=== PATIENT | female | born 1995 | race African-American/Black ===

== ENCOUNTER 2016-05-21 18:38 | Emergency (ER) | payer OTHER ==
[~2016-05-21] VITALS: Ht 152.4 cm; Wt 44.9 kg
[2016-05-21 19:14] LABS: NEG OBC UR NEG; POS OBC UR POS
[2016-05-21 19:17] LABS: BILIRUBIN,URINE NEGATIVE (NEG); GLUCOSE,URINE 250 mg/dL (NEG); NITRITE,URINE NEGATIVE (NEG); PH,URINE 5.5; PROTEIN,URINE NEGATIVE (NEG-TRACE); UROBILINOGEN,URINE 0.2 mg/dL (0.2 mg/dL)
[2016-05-21 19:25] LABS: BACTERIA,URINE MODERATE /HPF (0-FEW); RBC,URINE 0 /HPF (0-2); WBC,URINE 0 /HPF (0-4)
[2016-05-21 19:26] LABS: SQUAMOUS EPITHELIAL CELL,UR MOD /LPF
[2016-05-21 19:29] LABS: BASO # 0.1 x10^3/uL (0.0-0.2); BASO % 1 % (0-3); EOS % 1 % (0-3); HEMATOCRIT 43.5 % (36.0-47.0); HEMOGLOBIN 14.4 g/dL (12.0-15.5); LYMPH # 2.5 x10^3/uL (1.0-4.8); LYMPH % 20 % (24-48); MEAN CORPUSCULAR HEMOGLOBIN 31 pg (25-35); MEAN CORPUSCULAR HGB CONC 33 g/dL (31-37); MEAN CORPUSCULAR VOLUME 93 fL (79-100); MONO % 6 % (0-9); NEUT % 72 % (31-73); PLATELET COUNT 295 x10^3/uL (140-400); RED BLOOD COUNT 4.67 x10^6/uL (3.50-5.40); RED CELL DISTRIBUTION WIDTH 13.7 % (11.5-14.5); WHITE BLOOD COUNT 12.2 x10^3/uL (4.0-11.0)
[2016-05-21 19:42] LABS: CALCIUM 9.1 mg/dL (8.5-10.1); CREATININE 0.6 mg/dL (0.6-1.0); GFR 128.8; POTASSIUM 3.2 mmol/L (3.5-5.1)
[2016-05-21 19:47] LABS: ALBUMIN 3.8 g/dL (3.4-5.0); TOTAL BILIRUBIN 0.3 mg/dL (0.2-1.0); TOTAL PROTEIN 7.5 g/dL (6.4-8.2)
[2016-05-21] MEDS ORDERED: IV NORMAL SALINE 1000ML BAG 1,000 ML IV ONE (20:00)
[2016-05-21] MEDS ORDERED: ONDANSETRON PF 4 MG/2 ML VIAL. IV ONE (20:00)
--- NOTE | 2016-05-21 20:58 | RAD ---
PROCEDURE Obstetric ultrasound less than 14 weeks HISTORY female with pelvic pain TECHNIQUE Transabdominal transducer with grayscale, M-mode Doppler and duplex Doppler sonography COMPARISON No prior available FINDINGS Anteverted uterus. Cervical length not measured by the teacher associate however on the saved image the length measures 3.7 centimeters with no funneling evident. Uterus is anteverted measuring 9.3 x 5.1 centimeters longitudinal by 5.8 centimeters transverse. There is a single intrauterine gestational sac at the fundus which demonstrates a yolk sac with a diameter of 2.4 millimeters and a crown-rump length of 0.76 centimeters estimating sonographic gestational age of 6 weeks 5 days. heart rate 117 beats per minute. Double decidual reaction is noted. No subchorionic hemorrhage. Right ovary measures 1.5 x 3.7 x 2.1 centimeters demonstrates a thick walled 2.2 centimeter cystic lesion typical of a corpus luteum with peripheral hypervascularity. There is a small internal cystic component of this dominant right ovarian cystic focus, the ovarian parenchyma appears to encompass this focus suggesting it is intra-ovarian and not parovarian. Left ovary measures 1.1 x 1.9 x 1.5 centimeters. There is intact bilateral ovarian blood flow. IMPRESSION Single living intrauterine with estimated sonographic gestational age of 6 weeks 5 days and estimated date of delivery sonographically of January 09, 2017. There is a 2.2 centimeter thick-walled peripherally hypervascular cystic lesion eccentric within the right ovary with an internal daughter cyst present, features most suggestive of corpus luteum. Attention on followup imaging would be of benefit to document regression of this over time to exclude the rare possibility of a heterotopic which is felt to be unlikely. See discussion above. Electronically signed by: Brody Hill MD (May 21, 2016 20:57:15)
--- NOTE | 2016-05-21 21:18 | PHYS DOC ---
Past Medical History Past Medical History: Asthma Past Surgical History: No Surgical History Alcohol Use: None Drug Use: None Adult General Chief Complaint Chief Complaint: ABDOMINAL PAIN IN HPI HPI Patient is a 20 year old female who is 1 para 0 presents here today secondary to pelvic cramping. Patient reports that she found that she was approximately 1 week ago. Patient's last menstrual period was in April 13 proximally. Patient denies any fevers shaking chills diarrhea dysuria frequency urgency or vaginal bleeding. Patient reports she has been having nausea with one episode of vomiting earlier today. Patient has a history of asthma. No history of hypertension diabetes liver longer kidney problems. Patient is not allergic to any medications and is not on any medications right now. Patient does not smoke drink or do drugs. Patient has not had any surgeries in the past. Patient's physical exam the ER significant for mild left lower quadrant tenderness to palpation. Patient has no rebound or guarding. Patient does not exhibit any signs or symptoms that would be consistent with an acute surgical abdomen. Patient's lab workup were unremarkable. Patient is Rh+. Patient had an ultrasound of her which revealed a single live IUP at 6 weeks 5 days. Does appear to be a corpus luteum cyst on the right ovary. While in the ER the patient was given IV fluids and was hydrated. Given the patient's normal labs and her ultrasound the patient will be stable for discharge to home with further outpatient workup with her OB doctor. Review of Systems Review of Systems Constitutional: Denies fever or chills [] Eyes: Denies change in visual acuity, redness, or eye pain [] All other review of systems are negative except as documented in the history of present illness portion Current Medications Current Medications Current Medications Medications (Trade) Dose Ordered Sig/Markos Start Time Stop Time Status Last Admin Dose Admin Ondansetron HCl (Zofran) 4 mg 1X ONCE 05/21/16 20:00 05/21/16 20:01 DC Sodium Chloride (Iv Sodium Chloride 0.9% 1000ml Bag) 1,000 ml @ 999 mls/hr 1X ONCE 05/21/16 20:00 05/21/16 21:00 DC 05/21/16 20:12 999 MLS/HR Allergies Allergies Allergies Coded Allergies Type Severity Reaction Last Updated Verified No Known Drug Allergies 05/21/16 No Physical Exam Physical Exam Constitutional: Well developed, well nourished, no acute distress, non-toxic appearance. [] HENT: Normocephalic, atraumatic, bilateral external ears normal, oropharynx moist, no oral exudates, nose normal. [] Eyes: PERRLA, EOMI, conjunctiva normal, no discharge. [] Neck: Normal range of motion, no tenderness, supple, no stridor. [] Cardiovascular:Heart rate regular rhythm, no murmur [] Lungs & Thorax: Bilateral breath sounds clear to auscultation [] Abdomen: Bowel sounds normal, soft, mild tenderness to palpation to her left lower quadrant. Skin: Warm, dry, no erythema, no rash. [] Back: No tenderness, no CVA tenderness. [] Extremities: No tenderness, no cyanosis, no clubbing, ROM intact, no edema. [] Neurologic: Alert and oriented X 3, normal motor function, normal sensory function, no focal deficits noted. [] Psychologic: Affect normal, judgement normal, mood normal. [] Current Patient Data Vital Signs Vital Signs Date Time Temp Pulse Resp B/P Pulse Ox O2 Delivery O2 Flow Rate FiO2 05/21/16 19:02 98.2 113 14 142/81 99 Room Air 98.2 Lab Values Laboratory Tests Test 05/21/16 18:55 05/21/16 19:15 Urine Collection Type Unknown Urine Color Yellow Urine Clarity Clear Urine pH 5.5 Urine Specific [place] 1.020 Urine Protein Negativemg/dL (NEG-TRACE) Urine Glucose (UA) 250mg/dL (NEG) Urine Ketones (Stick) Tracemg/dL (NEG) Urine Blood Negative (NEG) Urine Nitrite Negative (NEG) Urine Bilirubin Negative (NEG) Urine Urobilinogen Dipstick 0.2mg/dL (0.2 mg/dL) Urine Leukocyte Esterase Negative (NEG) Urine RBC 0/HPF (0-2) Urine WBC 0/HPF (0-4) Urine Squamous Epithelial Cells Mod/LPF Urine Bacteria Moderate/HPF (0-FEW) Urine Mucus Slight/LPF Urine Test Positive (NEG) White Blood Count 12.2x10^3/uL (4.0-11.0) H Red Blood Count 4.67x10^6/uL (3.50-5.40) Hemoglobin 14.4g/dL (12.0-15.5) Hematocrit 43.5% (36.0-47.0) Mean Corpuscular Volume 93fL (79-100) Mean Corpuscular Hemoglobin 31pg (25-35) Mean Corpuscular Hemoglobin Concent 33g/dL (31-37) Red Cell Distribution Width 13.7% (11.5-14.5) Platelet Count 295x10^3/uL (140-400) Neutrophils (%) (Auto) 72% (31-73) Lymphocytes (%) (Auto) 20% (24-48) L Monocytes (%) (Auto) 6% (0-9) Eosinophils (%) (Auto) 1% (0-3) Basophils (%) (Auto) 1% (0-3) Neutrophils # (Auto) 8.8x10^3uL (1.8-7.7) H Lymphocytes # (Auto) 2.5x10^3/uL (1.0-4.8) Monocytes # (Auto) 0.7x10^3/uL (0.0-1.1) Eosinophils # (Auto) 0.1x10^3/uL (0.0-0.7) Basophils # (Auto) 0.1x10^3/uL (0.0-0.2) Maternal Serum HCG Beta Subunit 94020xOQ/mL (0-6) H Sodium Level 138mmol/L (136-145) Potassium Level 3.2mmol/L (3.5-5.1) L Chloride Level 103mmol/L (98-107) Carbon Dioxide Level 25mmol/L (21-32) Anion Gap 10 (6-14) Blood Urea Nitrogen 14mg/dL (7-20) Creatinine 0.6mg/dL (0.6-1.0) Estimated GFR (Cockcroft-Gault) 128.8 BUN/Creatinine Ratio 23 (6-20) H Glucose Level 154mg/dL (70-99) H Calcium Level 9.1mg/dL (8.5-10.1) Total Bilirubin 0.3mg/dL (0.2-1.0) Aspartate Amino Transferase (AST) 9U/L (15-37) L Alanine Aminotransferase (ALT) 11U/L (14-59) L Alkaline Phosphatase 69U/L (46-116) Total Protein 7.5g/dL (6.4-8.2) Albumin 3.8g/dL (3.4-5.0) Albumin/Globulin Ratio 1.0 (1.0-1.7) Laboratory Tests 05/21/16 19:15 Laboratory Tests 05/21/16 19:15 EKG EKG [] Radiology/Procedures Radiology/Procedures [] Please see above Course & Med Decision Making Course & Med Decision Making Pertinent Labs and Imaging studies reviewed. (See chart for details) [] Assessment and plan. 6 week 5 day IUP with left lower quadrant abdominal pain. Dragon Disclaimer Dragon Disclaimer This electronic medical record was generated, in whole or in part, using a voice recognition dictation system. Departure Departure Impression: Primary Impression: Threatened miscarriage Additional Impression: with abdominal pain of left lower quadrant, antepartum Disposition: 01 HOME, SELF-CARE Condition: IMPROVED Referrals: NO PCP (PCP) Patient Instructions: Threatened Miscarriage Additional Instructions: Please make an appointment to see her forensic economist within the next 1-2 days. Please take a copy of the ultrasound report that has been provided for use here in the emergency department with you. Please return to the ER if have any worsening pain, bleeding, or any other concerns that he might have. Problem Qualifiers VALORIE LAGUNAS MD May 21, 2016 21:19
[2016-05-21 21:30] VITALS: BP 117/66
== END 2016-05-21 21:48 | disposition home or self-care (01) ==
LOC: ER 18:38
DX: O20.0 Threatened abortion (principal); O21.0 Mild hyperemesis gravidarum; J45.909 Unspecified asthma, uncomplicated; Z3A.01 Less than 8 weeks gestation of pregnancy
CPT/HCPCS: 36415; 76801; 80053; 81001; 81025; 84702; 85027; 86901; 87086; 96360; 99285; J7030

== ENCOUNTER 2016-10-02 09:54 | Observation (INO) | payer OTHER | END 2016-10-02 14:09 | disposition home or self-care (01) | LOC: 3 SO LND 09:54 | PROVIDERS: ADMIT Specialist; ATTEND Specialist | DX: O21.9 Vomiting of pregnancy, unspecified (principal); O26.892 Other specified pregnancy related conditions, second trimester; R11.0 Nausea; G43.909 Migraine, unspecified, not intractable, without status migrainosus; Z3A.25 25 weeks gestation of pregnancy | CPT/HCPCS: G0378; G0379 ==

== ENCOUNTER 2017-02-02 10:03 | Emergency (ER) | payer OTHER ==
[~2017-02-02] VITALS: Ht 152.4 cm; Wt 49.9 kg
[2017-02-02 11:11] VITALS: BP 122/87
--- NOTE | 2017-02-02 12:28 | RAD ---
CHEST PA LATERAL Clinical Indication: chest discomfort Comparison: None. Findings: Normal lung volume. No focal consolidation. Normal pulmonary vasculature. No pleural effusion or pneumothorax. The cardiomediastinal silhouette and great vessels are normal. No acute osseous abnormality. IMPRESSION: No acute cardiopulmonary process.
--- NOTE | 2017-02-02 12:40 | EKG ---
[facility] [address] [place] [id number] Test Date: 2017-02-02 Test Time: 12:36:02 Pat Name: LEV CHEN Department: Room: Gender: F Machine Wedger: : 1995 Requested By: GERBER PULIDO Order Number: [id number] Reading MD: Measurements Intervals [place] Rate: 67 P: 56 AR: 140 QRS: 46 QRSD: 78 T: 36 QT: 406 QTc: 432 Interpretive Statements SINUS RHYTHM NORMAL ECG RI6.01 Unconfirmed report No previous ECG available for comparison
[2017-02-02] MEDS ORDERED: IBUP-1060 PO (13:38)
--- NOTE | 2017-02-02 13:39 | PHYS DOC ---
Past Medical History Past Medical History: Asthma Past Surgical History: No Surgical History Alcohol Use: None Drug Use: None Adult General Chief Complaint Chief Complaint: OTHER COMPLAINTS [facility] HPI Patient is a 21 year old [f__sex] who presents with [] Review of Systems Review of Systems Constitutional: Denies fever or chills [] Eyes: Denies change in visual acuity, redness, or eye pain [] HENT: Denies nasal congestion or sore throat [] Respiratory: Denies cough or shortness of breath [] Cardiovascular: No additional information not addressed in HPI [] GI: Denies abdominal pain, nausea, vomiting, bloody stools or diarrhea [] : Denies dysuria or hematuria [] Musculoskeletal: Denies back pain or joint pain [] Integument: Denies rash or skin lesions [] Neurologic: Denies headache, focal weakness or sensory changes [] Endocrine: Denies polyuria or polydipsia [] Allergies Allergies Allergies Coded Allergies Type Severity Reaction Last Updated Verified No Known Drug Allergies 05/21/16 No Physical Exam Physical Exam Constitutional: Well developed, well nourished, no acute distress, non-toxic appearance. [] HENT: Normocephalic, atraumatic, bilateral external ears normal, oropharynx moist, no oral exudates, nose normal. [] Eyes: PERRLA, EOMI, conjunctiva normal, no discharge. [] Neck: Normal range of motion, no tenderness, supple, no stridor. [] Cardiovascular:Heart rate regular rhythm, no murmur [] Lungs & Thorax: Bilateral breath sounds clear to auscultation [] Abdomen: Bowel sounds normal, soft, no tenderness, no masses, no pulsatile masses. [] Skin: Warm, dry, no erythema, no rash. [] Back: No tenderness, no CVA tenderness. [] Extremities: No tenderness, no cyanosis, no clubbing, ROM intact, no edema. [] Neurologic: Alert and oriented X 3, normal motor function, normal sensory function, no focal deficits noted. [] Psychologic: Affect normal, judgement normal, mood normal. [] Current Patient Data Vital Signs Vital Signs Date Time Temp Pulse Resp B/P (MAP) Pulse Ox O2 Delivery O2 Flow Rate FiO2 02/02/17 11:11 98.1 82 18 97 Room Air 98.1 EKG EKG [] Radiology/Procedures Radiology/Procedures [] Course & Med Decision Making Course & Med Decision Making Pertinent Labs and Imaging studies reviewed. (See chart for details) []PROCEDURE: CHEST PA & LATERAL CHEST PA LATERAL Clinical Indication: chest discomfort Comparison: None. Findings: Normal lung volume. No focal consolidation. Normal pulmonary vasculature. No pleural effusion or pneumothorax. The cardiomediastinal silhouette and great vessels are normal. No acute osseous abnormality. IMPRESSION: No acute cardiopulmonary process. Dragon Disclaimer Dragon Disclaimer This electronic medical record was generated, in whole or in part, using a voice recognition dictation system. Departure Departure Impression: Primary Impression: Pleurisy Disposition: HOME, SELF-CARE Condition: STABLE Referrals: UNKNOWN PCP NAME (PCP) SHELDON ALMODOVAR MD Patient Instructions: Pleurisy Scripts Ibuprofen (IBUPROFEN) 800 Mg Tablet 800 MG PO PRN Q6HRS Y for INFLAMMATION, #20 TAB Prov: GERBER PULIDO 02/02/17 GERBER PULIDO Feb 02, 2017 13:39
== END 2017-02-02 13:50 | disposition home or self-care (01) ==
LOC: ER 10:03
DX: R09.1 Pleurisy (principal)
CPT/HCPCS: 71020; 93005; 99284